=== PATIENT | female | born 1985 | race Hispanic/Latino ===

== ENCOUNTER 2017-08-02 10:54 | Emergency (ER) | payer OTHER ==
[2017-08-02 10:56] VITALS: BMI 24.0
--- NOTE | 2017-08-02 11:46 | ED PDOC ---
HPI: General Adult Time Seen by Provider: 08/02/17 11:06 Chief Complaint (Nursing): Abdominal Pain Chief Complaint (Provider): Pelvic pain History Per: Patient History/Exam Limitations: no limitations Onset/Duration Of Symptoms: Hrs Have you had recent travel within the past 21 days to any of the following countries: [place], [place], [place] or [place]?: No Additional Complaint(s): 31yo female, no past medical history, presents to ED with complaints of pelvic pain which started this morning with associated vaginal bleeding as well; patient reports she is due for her menses as well. She denies any fever, nausea , vomiting, constipation or diarrhea. Of note, patient's is present at bedside and states the patient's feet appear pale and is cold from being outside. No other medical complaints. Past Medical History Reviewed: Historical Data, Nursing Documentation, Vital Signs Vital Signs: Last Vital Signs Temp 98 F 08/02/17 17:00 Pulse 78 08/02/17 17:00 Resp 18 08/02/17 17:00 BP 102/60 08/02/17 17:00 Pulse Ox 100 08/09/17 10:23 - Medical History PMH: No Chronic Diseases - Surgical History Surgical History: No Surg Hx - Family History Family History: States: No Known Family Hx - Living Arrangements Living Arrangements: With Family - Home Medications Home Medications: Ambulatory Orders Medication Instructions Recorded Fluconazole [Diflucan] 150 mg PO ONCE #1 tab 08/02/17 Naproxen [Naprosyn] 500 mg PO BID PRN #15 tablet 08/02/17 Nitrofurantoin Macrocrystals 100 mg PO BID #13 cap 08/02/17 [Macrobid] Phenazopyridine [Pyridium] 200 mg PO TID PRN #6 tab 08/02/17 - Allergies Allergies/Adverse Reactions: Allergies Allergy/AdvReac Type Severity Reaction Status Date / Time No Known Allergies Allergy Verified 08/02/17 11:05 Review of Systems ROS Statement: Except As Marked, All Systems Reviewed And Found Negative Constitutional: Negative for: Fever Gastrointestinal: Negative for: Nausea, Vomiting, Abdominal Pain, Diarrhea, Constipation Genitourinary Female: Positive for: Vaginal Bleeding, Pelvic Pain Musculoskeletal: Positive for: Other (pallor to feet) Physical Exam - Reviewed Nursing Documentation Reviewed: Yes Vital Signs Reviewed: Yes - Physical Exam Appears: Positive for: Non-toxic, Uncomfortable Head Exam: Positive for: ATRAUMATIC, NORMAL INSPECTION, NORMOCEPHALIC Skin: Positive for: Normal Color Eye Exam: Positive for: Normal appearance Neck: Positive for: Supple Cardiovascular/Chest: Positive for: Regular Rate, Rhythm Respiratory: Positive for: Normal Breath Sounds. Negative for: Respiratory Distress Gastrointestinal/Abdominal: Positive for: Normal Exam, Soft, Tenderness ( tenderness to right lower pelvic area; no Mcburney's point tenderness) Pelvic Exam: Positive for: Blood (minimal dark blood in vault). Negative for: Mass, Tender Adnexa Extremity: Positive for: Normal ROM, Other (lateral 3 digits on bilateral feet pale in appearance; sensations intact) Neurologic/Psych: Positive for: Alert, Oriented. Negative for: Motor/Sensory Deficits - Laboratory Results Result Diagrams: 08/02/17 11:50 08/02/17 11:50 - ECG O2 Sat by Pulse Oximetry: 100 (RA) Pulse Ox Interpretation: Normal Medical Decision Making Medical Decision Making: Time: 1134 Impression: Pallorous digits and pelvic pain Plan: -- Labs -- US Pelvis Reassess Time: 1550 US Pelvis FINDINGS: Uterus measures 7.7 x 3.0 x 4.0 centimeters. The endometrium measures 9 millimeters. The ovaries have a normal sonographic appearance. There is no free fluid the pelvis. IMPRESSION: Normal exam. Accession No. : [id number] Patient Name / ID : AKBAR JIMENEZ / [id number] Exam Date : 08/02/2017 16:51:58 ( Approved ) Study Comment : Sex / Age : F / 31Y Creator : Destin Chiu MD Dictator : Destin Chiu MD Creative Producer : [employer] Supervisor : Destin Chiu MD Approver2 : Report Date : 08/02/2017 17:29:41 My Comment : PROCEDURE: CT Abdomen and Pelvis with contrast HISTORY: Pelvic pain COMPARISON: None. TECHNIQUE: Contrast dose: Radiation dose: Total exam DLP = mGy-cm. This CT exam was performed using one or more of the following dose reduction techniques: Automated exposure control, adjustment of the mA and/or kV according to patient size, and/or use of iterative reconstruction technique. FINDINGS: LOWER THORAX: Unremarkable. LIVER: Unremarkable. No gross lesion or ductal dilatation. GALLBLADDER AND BILE DUCTS: Unremarkable. PANCREAS: Unremarkable. No gross lesion or ductal dilatation. SPLEEN: Unremarkable. ADRENALS: Unremarkable. No mass. KIDNEYS AND URETERS: Unremarkable. No hydronephrosis. No solid mass. VASCULATURE: Unremarkable. No aortic aneurysm. BOWEL: Unremarkable. No obstruction. No gross mural thickening. APPENDIX: Normal appendix. PERITONEUM: Unremarkable. No free fluid. No free air. LYMPH NODES: Unremarkable. No enlarged lymph nodes. BLADDER: Unremarkable. REPRODUCTIVE: Unremarkable. BONES: No acute fracture. OTHER FINDINGS: None. IMPRESSION: Unremarkable contrast enhanced CT of the abdomen and pelvis. Feet returned to normal color. Findings discussed in detail with patient and family. Questions answered. Scribe Attestation: Documented by Lucille Tristan acting as a scribe for Carolee Reid MD. Provider Attestation: All medical record entries made by the Scribe were at my direction and personally dictated by me. I have reviewed the chart and agree that the record accurately reflects my personal performance of the history, physical exam, medical decision making, and the department course for this patient. I have also personally directed, reviewed, and agree with the discharge instructions and disposition. Disposition - Clinical Impression Clinical Impression: Pelvic pain, UTI (urinary tract infection) - Disposition Referrals: Elayne Clay MD [Staff Provider] - Disposition: Routine/Home Disposition Time: 17:45 Condition: IMPROVED Prescriptions: Fluconazole [Diflucan] 150 mg PO ONCE #1 tab Naproxen [Naprosyn] 500 mg PO BID PRN #15 tablet PRN Reason: Pain, Moderate (4-7) Nitrofurantoin Macrocrystals [Macrobid] 100 mg PO BID #13 cap Phenazopyridine [Pyridium] 200 mg PO TID PRN #6 tab PRN Reason: Bladder Spasm Instructions: Urinary Tract Infection in Women (ED), Pelvic Pain (ED) Forms: [employer] (Bulgarian)
[2017-08-02] MEDS ORDERED: Sodium Chloride 0.9% 1,000 ML IV STA ×2 (11:54→16:24)
[2017-08-02 12:19] LABS: BASO % 0.6 % (0.0-2.0); EOS # 0.1 K/uL (0.0-0.7); EOS % 2.2 % (0.0-4.0); HEMATOCRIT 38.3 % (34.0-47.0); LYMPH % 15.5 % (20.0-40.0); MEAN CELL VOLUME 102.7 fl (81.0-99.0); MEAN CORPUSCULAR HEMOGLOBIN 34.3 pg (27.0-31.0); MEAN CORPUSCULAR HGB CONC 33.4 g/dL (33.0-37.0); MEAN PLATELET VOLUME 8.9 fl (7.2-11.7); MONO # 0.3 K/uL (0.0-0.8); MONO % 4.3 % (0.0-10.0); NEUT # 5.2 K/uL (1.8-7.0); NEUT % 77.4 % (50.0-75.0); RED CELL DISTRIBUTION WIDTH 13.4 % (11.5-14.5); WHITE BLOOD COUNT 6.7 K/uL (4.8-10.8)
[2017-08-02 12:28] LABS: PARTIAL THROMBOPLASTIN TIME 26.3 Seconds (25.6-37.1)
[2017-08-02 12:41] LABS: ALB/GLOB RATIO 1.5 (1.0-2.1); ALKALINE PHOSPHATASE 31 U/L (38-126); ALT/SGPT 41 U/L (9-52); AST/SGOT 20 U/L (14-36); BILIRUBIN,TOTAL 0.3 mg/dl (0.2-1.3); BLOOD UREA NITROGEN 17 mg/dl (7-17); CALCIUM 8.7 mg/dL (8.4-10.2); CARBON DIOXIDE 25 mmol/L (22-30); CHLORIDE 107 mmol/L (98-107); GFR AFRICAN-AMERICAN > 60; GLUCOSE,RANDOM 124 mg/dL (65-105); POTASSIUM 4.2 MMOL/L (3.6-5.0); SODIUM 140 mmol/l (132-148); TOTAL PROTEIN 6.8 G/DL (6.3-8.2)
[2017-08-02 13:07] VITALS: RESP 18
[2017-08-02 13:28] LABS: RBC URINE 21 /hpf (0-3); URINE BACTERIA MOD (<OCC); URINE BILIRUBIN NEGATIVE (NEGATIVE); URINE BLOOD LARGE (NEGATIVE); URINE COLOR AMBER (YELLOW); URINE GLUCOSE (UA) NEG (Normal); URINE KETONE NEGATIVE (NEGATIVE); URINE PROTEIN 100 mg/dL (NEGATIVE); URINE UROBILINOGEN 0.2-1.0 mg/dL (0.2-1.0); WBC URINE 29 /hpf (0-5)
[2017-08-02 13:29] LABS: URINE LEUKOCYTE ESTERASE MODERATE Leu/uL (Negative)
[2017-08-02 13:52] VITALS: O2SAT 100
[2017-08-02 15:46] VITALS: PULSE 78; TEMP 98
--- NOTE | 2017-08-02 15:50 | US ---
PROCEDURE: HISTORY: R pelvic pain COMPARISON: TECHNIQUE: FINDINGS: Uterus measures 7.7 x 3.0 x 4.0 centimeters. The endometrium measures 9 millimeters. The ovaries have a normal sonographic appearance. There is no free fluid the pelvis. IMPRESSION: Normal exam.
[2017-08-02] MEDS ORDERED: Iohexol 300 100 ML IJ ONE (16:52)
--- NOTE | 2017-08-02 17:31 | CT ---
PROCEDURE: CT Abdomen and Pelvis with contrast HISTORY: Pelvic pain COMPARISON: None. TECHNIQUE: Contrast dose: Radiation dose: Total exam DLP = mGy-cm. This CT exam was performed using one or more of the following dose reduction techniques: Automated exposure control, adjustment of the mA and/or kV according to patient size, and/or use of iterative reconstruction technique. FINDINGS: LOWER THORAX: Unremarkable. LIVER: Unremarkable. No gross lesion or ductal dilatation. GALLBLADDER AND BILE DUCTS: Unremarkable. PANCREAS: Unremarkable. No gross lesion or ductal dilatation. SPLEEN: Unremarkable. ADRENALS: Unremarkable. No mass. KIDNEYS AND URETERS: Unremarkable. No hydronephrosis. No solid mass. VASCULATURE: Unremarkable. No aortic aneurysm. BOWEL: Unremarkable. No obstruction. No gross mural thickening. APPENDIX: Normal appendix. PERITONEUM: Unremarkable. No free fluid. No free air. LYMPH NODES: Unremarkable. No enlarged lymph nodes. BLADDER: Unremarkable. REPRODUCTIVE: Unremarkable. BONES: No acute fracture. OTHER FINDINGS: None. IMPRESSION: Unremarkable contrast enhanced CT of the abdomen and pelvis.
[2017-08-02 18:07] VITALS: BP 102/60
== END 2017-08-02 18:20 | disposition home or self-care (01) ==
LOC: H.ER 10:54
DX: N39.0 Urinary tract infection, site not specified (principal); R10.2 Pelvic and perineal pain
CPT/HCPCS: 74177; 76830; 80053; 81003; 81025; 84702; 85025; 85610; 85730; 87491; 87591; 96374; 99284; J2270; J7040; Q9967